=== PATIENT | male | born 1980 | race Caucasian/White ===

== ENCOUNTER 2016-06-08 16:49 | Emergency (ER) | payer OTHER ==
[2016-06-08] MEDS ORDERED: ONDANSETRON 4 MG/2 ML VIAL IVP STA (17:22)
[2016-06-08] MEDS ORDERED: SODIUM CHLORIDE 0.9% 1,000 ML IV ONE ×2 (17:22→17:33)
[2016-06-08] MEDS ORDERED: HYOSCYAMINE SL 0.125 MG TABLET SL STA (17:22)
[2016-06-08] MEDS ORDERED: ONDANSETRON 4 MG/2 ML VIAL ONE (17:33)
== END 2016-06-08 19:41 | disposition home or self-care (01) ==
DX: R19.7 Diarrhea, unspecified (principal); R10.84 Generalized abdominal pain
CPT/HCPCS: 36415; 80053; 83690; 85025; 87045; 87046; 87077; 87493; 96374; 99283; 99284; A9270

== ENCOUNTER 2016-09-04 17:53 | Emergency (ER) | payer OTHER | END 2016-09-04 20:38 | disposition home or self-care (01) | DX: J02.9 Acute pharyngitis, unspecified (principal); B97.89 Other viral agents as the cause of diseases classified elsewhere ==